=== PATIENT | male | born 1935 | race Caucasian/White ===

== ENCOUNTER 2016-08-08 15:16 | Inpatient (IN) | payer MEDICARE, OTHER ==
[~2016-08-08] VITALS: Ht 172.7 cm; Wt 84.5 kg
--- NOTE | ~2016-08-08 | CON ---
PATIENT'S NAME: CONI JENSEN [facility] AGE: 80 Y [address] ROOM: G6230 [place], [place] [address] LOCATION: GICU ADMIT DATE: 08/08/2016 Consultation DISCHARGE DATE: FAMILY PHYSICIAN: PHYSICIAN, UNKNOWN ATTENDING PHYSICIAN: EMY BECKMAN DATE OF CONSULTATION: 08/09/2016 REFERRING PHYSICIAN: ZAIRE MAHER MD The patient was seen in consultation on 08/09/2016 at 4 p.m. HISTORY OF PRESENT ILLNESS: Mr. Jensen is a very pleasant 80-year-old male patient, who is here with his family. He arrived here by air ambulance from [facility] at that facility. Apparently, the patient had fallen earlier in the day in an attempt to ambulate from his chair to the bathroom. He suffered a fall, he said he hit the back of his head and possibly injured his neck, though he directly has no pain into the back of his head or denied any neck pain presently. In the setting of the patient having this new onset of falling and becoming confused, he was noted to become significantly hypoxic and received a dose of Narcan. The patient then became more awake. Because of the hit to the head, the patient had a CT scan performed and initially it did not show any evidence of a bleed or a stroke. Because of the thought that the patient may have an acute respiratory issue, a CT pulmonary angiogram was done here of the chest due to possibility that he had an aspiration pneumonia and also to rule out possibility of a pulmonary embolus. He indeed had a positive pulmonary emboli that was affecting the right lower lobe of the lung. Furthermore, a CT was done of his cervical, thoracic, and lumbar spine because of his fall, but thankfully no evidence of any fracture was seen of the vertebral bodies. An MRI was finally performed on the after negative CTs and it did show evidence for a stroke into the left side of the cerebellum, some small involvement of a stroke into the left lexie. Though, an MRA followed to look at the vessels of the brain and it was completely negative. My thinking presently is that the patient did have an injury to the posterior blood vessels, may have been associated with the patient's stroke. This may be due to rdpvmt-qa-wbrljs embolization to branch of the basilar artery, more specifically to the superior cerebellar artery and possibly even to branch off the vertebral artery, concerning that the patient did have evidence for stroke into the lexie. Remarkably, the patient is actually doing well. He appears to be in no acute distress. His exam is essentially fairly normal. The only major finding on my physical exam is the patient having some dysmetria in his left hand on gvohmb-zh-ezow. There was no evidence that the patient has been experiencing double vision or vertigo. He denies any problems with chewing or swallowing. He denies any facial numbness or hemibody numbness. He denies having a current headache. Because of the nature of the pulmonary embolism, PATIENT'S NAME: CONI JENSEN [facility] AGE: 80 Y [address] ROOM: [address] [address] LOCATION: [facility] ADMIT DATE: 08/08/2016 Consultation DISCHARGE DATE: FAMILY PHYSICIAN: PHYSICIAN, UNKNOWN ATTENDING PHYSICIAN: EMY BECKMAN the patient was placed on IV heparin with a goal to place him on full anticoagulation, anti-platelet agent, and Plavix was stopped at this time. PAST MEDICAL HISTORY: Essentially, the patient rarely goes to doctors and he says that he is healthy. ALLERGIES: HE HAS NO KNOWN DRUG ALLERGIES. SOCIAL HISTORY: There is a history of probable alcohol abuse. He denies to me heavy alcohol such as liquor consumption. He denies ever having any alcohol withdrawal seizures nor has he ever had alcohol withdrawal agitation or delirium. PAST SURGICAL HISTORY: Appendectomy and hernia repair in his abdomen. FAMILY HISTORY: Noncontributory. REVIEW OF SYSTEMS: This is a pleasant male patient, in no acute distress. Neurologically, he presents after a fall and injury to the back of his head with evidence on MRI of a stroke into the cerebellum and possibly small stroke into the lexie. He is essentially asymptomatic for pontine stroke I believe, however, the cerebellar stroke is probably giving him some dysmetria on xvawia-pn-fzep of his left arm. He has no focal weakness. No sensory complaints. No current headache. He has full range of motion of his head and neck. There are no complaints of vertigo, double vision, facial numbness, or hemibody numbness. The patient was not ambulated by myself, but he was known to have some mild ataxic gait with a tendency to fall to the left. Pulmonary smith, the patient has been started on IV heparin with the evidence for a pulmonary embolism. The rest of the review of systems is within normal limits. PHYSICAL EXAMINATION: GENERAL: This is an 80-year-old patient, who has excellent mentation. His speech is clear. He answers all questions appropriately. His memory is intact with 5/5 object recall at 5 minutes. VITAL SIGNS: Reveal a pulse of 64, respirations 18, blood pressure 144/69, and temperature 98.6. NEUROLOGIC: Cranial nerves II through XII was intact. I did not appreciate any facial droop. He did not have any dysarthric speech. His neck is supple on flexion and extension. Full power was noted in all the extremities with normal bulk and tone. Coordination on ccapgy-ez-zdcw revealing dysmetria in PATIENT'S NAME: CONI JENSEN [facility] AGE: 80 Y [address] ROOM: [address] [address] LOCATION: [facility] ADMIT DATE: 08/08/2016 Consultation DISCHARGE DATE: FAMILY PHYSICIAN: PHYSICIAN, UNKNOWN ATTENDING PHYSICIAN: EMY BECKMAN the left upper extremity, but not in the right upper extremity. Sensory exam was completely intact. He was not ambulated presently. IMPRESSION: Mr. Jensen is an 80-year-old male patient, who had an injury after a fall at home. He also came in with hypoxic respiratory distress and was found to have a pulmonary embolism, which is currently being treated with IV heparin, suggesting that he had a stroke into the cerebellum and some evidence of a positive DWI finding in the lexie. He has absolutely no findings on physical exam of a pontine stroke, so I am not sure how that relates to the finding on MRI. I am sure that he is making a good recovery at this point in time and his only findings on physical exam is a bit of dysmetria on the left side. I want the patient to be on bedrest for 3 days from the time of having this type of stroke. It is important because there is often some swelling that takes place and this type of stroke often lead to obstruction of the fourth ventricle. Hopefully, after 72 hours, we could ambulate the patient. He probably has some mild ataxic gait according to the nurse when he was briefly ambulated, but I am not necessarily concerned that this would be an issue over the next few days. In general, cerebellar stroke should make a good recovery. I cannot prove that the patient had an injury per se to the vertebral artery and had xaopav-im-qhhslr embolization to the superior cerebellar arteries, but the history of a fall with a brief injury to the vertebral artery could have caused some low-flow state and fyqwjt-vg-kywwdh emboli to the superior cerebellar artery. The treatment would normally be aspirin only and I am not against using anticoagulation in the setting of this particular stroke. The nature of the treatment for a pulmonary embolism with anticoagulation far outweighs the risk for intracranial hemorrhage with an anticoagulant. Certainly, I discussed with the patient and family that the risk for bleeding into a stroke is certainly there, though I do not necessarily think it is more than a low likelihood. The risk for bleeding into a stroke probably peaked around one week's time from the time of the stroke. I discussed with him that he should be on strict bedrest up until 72 hours and we will slowly begin to ambulate the patient and see his needs for physical therapy. Currently, he does not have any dysarthric speech and need for speech therapy is extremely limited. We will continue to follow along the patient's status. MD ROD HERNANDEZ/rogel /[id number] d: 08/11/16 0155 t: 08/21/16 1738, CONSULTATION REPORT
--- NOTE | ~2016-08-08 | ENPV ---
Vascular Lower Extremities DVT Study Procedure Demographics Patient Name CONI MCLEAN Date of Study 08/09/2016 Patient Number [id number] Gender Male Date of 1935 Age 80 Visit Number [id number] Height 68 Accession Number [id number] Weight 188 Referring Fawn Pimentel MD Interpreting Dhruv Ramires MD Physician Physician Physician Ordering Physician Fawn Pimentel MD Cloth Winder Test Designer Violet Masseye RUST, T Conclusions Summary No evidence of deep vein thrombosis or superficial thrombophlebitis in the lower extremities bilaterally . Procedure Type of Study: Veins:Lower Extremities DVT Study, Venous Duplex Lower Extremity Bilateral. Indications for Study:Pulmonary embolism. Appropriate Use Criteria:9 Patient Status:Routine. Study Location:Inpatient Portable. Technical Quality:Adequate visualization. Velocities are measured in cm/s ; Diameters are measured in cm Right Lower Extremities DVT Study Measurements Right 2D and Doppler Measurements + + + + +------+------+ + !Location !Visualized!Compressibility!Thrombosis!Signal!Reflux!Reflux ! ! ! ! ! ! ! !(sec) ! + + + + +------+------+ + !GSV Thigh !Yes !Yes !None !Phasic! ! ! + + + + +------+------+ + !Common !Yes !Yes !None !Phasic! ! ! !Femoral ! ! ! ! ! ! ! + + + + +------+------+ + !Prox !Yes !Yes !None !Phasic! ! ! !Femoral ! ! ! ! ! ! ! + + + + +------+------+ + !Mid Femoral!Yes !Yes !None !Phasic! ! ! + + + + +------+------+ + !Dist !Yes !Yes !None !Phasic! ! ! !Femoral ! ! ! ! ! ! ! + + + + +------+------+ + !Popliteal !Yes !Yes !None !Phasic! ! ! + + + + +------+------+ + !Gastroc !Yes !Yes !None ! ! ! ! + + + + +------+------+ + !PTV !Yes !Yes !None ! ! ! ! + + + + +------+------+ + !Peroneal !Yes !Yes !None ! ! ! ! + + + + +------+------+ + Left Lower Extremities DVT Study Measurements Left 2D and Doppler Measurements + + + + +------+------+ + !Location !Visualized!Compressibility!Thrombosis!Signal!Reflux!Reflux ! ! ! ! ! ! ! !(sec) ! + + + + +------+------+ + !GSV Thigh !Yes !Yes !None !Phasic! ! ! + + + + +------+------+ + !Common !Yes !Yes !None !Phasic! ! ! !Femoral ! ! ! ! ! ! ! + + + + +------+------+ + !Prox !Yes !Yes !None !Phasic! ! ! !Femoral ! ! ! ! ! ! ! + + + + +------+------+ + !Mid Femoral!Yes !Yes !None !Phasic! ! ! + + + + +------+------+ + !Dist !Yes !Yes !None !Phasic! ! ! !Femoral ! ! ! ! ! ! ! + + + + +------+------+ + !Popliteal !Yes !Yes !None !Phasic! ! ! + + + + +------+------+ + !Gastroc !Yes !Yes !None ! ! ! ! + + + + +------+------+ + !PTV !Yes !Yes !None ! ! ! ! + + + + +------+------+ + !Peroneal !Yes !Yes !None ! ! ! ! + + + + +------+------+ + Signature dtt: SUPRIYA DELGADO dtkeisha: 08/09/16 1539 Physician Self Edit
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
--- NOTE | ~2016-08-08 | CON ---
PATIENT'S NAME: CARIDAD [facility] AGE: 80 Y [address] ROOM: [place] [address] LOCATION: [facility] ADMIT DATE: 08/08/2016 Consultation DISCHARGE DATE: FAMILY PHYSICIAN: PHYSICIAN, UNKNOWN ATTENDING PHYSICIAN: EMY AUGUSTINE REFERRING PHYSICIAN: ZAIRE MAHER MD Consult for Dr. Augustine, hospitalist. HISTORY OF PRESENT ILLNESS: This is an 80-year-old gentleman, who lives with , was admitted yesterday on 08/08/2016 transferred from [facility] as per history and physical with hypoxia and falling. He has been drinking the night before. However, he has never been intoxicated and he drinks on and off. He went to bathroom and fell and hit his head, left side. CT scan was done and revealed no abnormality. However, MRI showed the followin. Large acute area of ischemic process involving the left side of cerebellum hemisphere and a small area of acute ischemic area involving the left lexie. 2. Mild periventricular small-vessel ischemia. 3. No acute hemorrhage. MEDICAL HISTORY: To start with, it was negative for any fracture and/or abnormality of the cervical spine and thoracic and lumbar spine. CT scan of the lungs showed pulmonary embolism in the right lower artery of the right lung. He has also hiatal hernia with decreased saturation, hypoxia. PHYSICAL EXAMINATION: GENERAL: At the present time, he is alert, oriented. VITAL SIGNS: Blood pressure 126/61, temperature 97.2, pulse 63, respiratory rate 16. He is 5 feet 8 inches tall, weighs 85.3 kg. HEENT: Head normocephalic. NEUROLOGIC: Cranial nerves 2 through 12 are within normal limits, except for the dysequilibrium. He can swallow. His voice is clear and not wet. Tongue and soft palate are moving symmetrical. He is at the present time able to move bilateral upper and lower extremities with a muscle strength of about 4- to 4/5 throughout. Deep tendon reflexes are present and equal throughout. He feels markedly unsteady when standing, kneels mostly to right and posteriorly. MEDICATIONS: He is on the following medications: PATIENT'S NAME: CARIDAD [facility] AGE: 80 Y [address] ROOM: [place] [id number] LOCATION: [facility] ADMIT DATE: 08/08/2016 Consultation DISCHARGE DATE: FAMILY PHYSICIAN: PHYSICIAN, UNKNOWN ATTENDING PHYSICIAN: EMY AUGUSTINE 1. Colace. 2. Protonix. 3. Mucinex. 4. Apresoline. 5. Lipitor. 6. Aspirin. 7. Labetalol. 8. NaCl 0.9%. 9. Ativan. 10. Tylenol. 11. Zofran. 12. Morphine sulfate. 13. Heparin sodium. 14. Hydralazine. 15. Protonix. 16. Thermazene. ASSESSMENT AND PLAN: I feel this gentleman will benefit from intensive PT, OT, and Speech for about 3 weeks, aiming to discharge on modified independence to acute rehab. He is at the present time already initiated on PT, OT, and Speech. I will advise that he should not drive despite any means he is discharged before he comes to me, and he should have his saturation 89 and above. He is at high risk of falling and he needs hands on at all time when he is up. All the above was explained to him. I am ready to take him for intensive rehabilitation. Thank you for this referral. All the above were explained to him. He verbalized understanding and agreement. MD ANNIE BERRY/modl /[id number] d: 08/09/16 2258 t: 08/10/16 0900, CONSULTATION REPORT
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
--- NOTE | ~2016-08-08 | ECHO ---
Transthoracic Echocardiography Report (TTE) Demographics Patient Name CONI MCLEAN Date of Study 08/09/2016 Patient Number [id number] Visit Number [id number] Date of 1935 Room Number G6230 Accession Number [id number] Gender Male Age 80 year(s) Referring Fawn Pimentel MD Wood Floor Refinisher Violet Holbrook RDCS, Physician RVT Physician Interpreting Claudine Pascal MD Strap Cutting Machine Operator Physician Supervising Ordering Physician Fawn Pimentel MD, MD/P Nurse Stress Lead Systems Architect Conclusions Contractility Score Summary Normal Left Ventricular contractility was noted. Summary The estimated left ventricular ejection fraction is 55-60%. Diastolic assessment reveals Grade II pseudonormal diastolic function . The left atrium is severely dilated by LA volume index measurement. Informed consent was obtained, bubble study was done, there is no evidence for a PFO or ASD. The right atrium is moderately dilated. Mild tricuspid regurgitation by color Doppler. There is moderate pulmonary hypertension. The pulmonary pressure (RVSP) is 47.44 mmHg. Procedure Type of Study TTE procedure:2D Echocardiogram. Procedure Date Date: 08/09/2016 Start: 03:04 PM Study Location: Inpatient Portable Technical Quality: Adequate visualization Indications:CVA. Appropriate Use Criteria: 9 Patient Status: Routine Contrast Medium: Bubble Study. HR: 59 bpm BP: 125/61 mmHg M-Mode/2D Measurements LV Diastolic Dimension: 5.38 cm LV Systolic Dimension: 2.74 cm LV Septum Diastolic: 0.81 cm LV PW Diastolic: 0.91 cm Cardiac Output: 3.95 l/min LA Dimension: 3.1 cm LVOT: 1.9 cm LVOT VTI: 23.6 cm RV Base: 3.71 cm LV Stroke volume: 66.88 ml RV Length: 6.35 cm TAPSE: 3 cm TDI-S': 15 cm/s Doppler Measurements AV Peak Velocity: 1.47 m/s MV Peak E-Wave: 0.83 m/s AV Peak Gradient: 8.64 mmHg MV Peak A-Wave: 0.74 m/s AV Mean Gradient: 4 mmHg MV E/A Ratio: 1.13 LVOT Peak Velocity: 1 m/s MV P1/2t: 59 msec AV P1/2t: 603 msec TR Gradient:39.44 mmHg PV Peak Velocity: 0.7 m/s Estimated RAP:8 mmHg PV Peak Gradient: 1.96 mmHg Estimated RVSP: 47 mmHg Estimated PASP: 47.44 mmHg Findings Left Ventricle Diastolic assessment reveals Grade II pseudonormal diastolic function . The left ventricle is normal in size . Right Ventricle Mildly dilated right ventricle. Left Atrium Informed consent was obtained, bubble study was done, there is no evidence for a PFO or ASD. Right Atrium The right atrium is moderately dilated. IVC measures 2.4 cm with inspiratory collapse. Mitral Valve Mild mitral regurgitation by color Doppler. Aortic Valve There is mild aortic regurgitation by color Doppler. Tricuspid Valve Moderate tricuspid regurgitation by color Doppler. There is moderate pulmonary hypertension. The pulmonary pressure (RVSP) is 47.44 mmHg. Pulmonic Valve Normal pulmonic valve structure and function. Pericardial Effusion No evidence of pericardial effusion. Miscellaneous Visualized portions of the aortic root and ascending aorta appear normal in size. Pleural Effusion No evidence of pleural effusion. Contractility Score LV regional wall motion:(0-Non visualized 1-Normal 2-Hypokinesis 3-Akinesis 4-Dyskinesis 5-Aneurysm) Signature dtt: Gwyn Chow (cardio) dtd: 08/09/16 1504 Physician Self Edit
[2016-08-08 16:00] LABS: BASOPHIL % 0.2 %; HEMATOCRIT 41.1 % (33.0-50.0); HEMOGLOBIN 13.7 g/dL (11.0-16.0); IMMATURE GRANULOCYTE % 0.5 %; LYMPHOCYTE # 0.5 K/uL (0.8-4.0); LYMPHOCYTE % 8.3 %; MCH 32.5 pg (27.0-34.0); MCHC 33.3 gm/dL (32.0-36.5); MCV 97.6 fl (83.0-98.0); MONOCYTE # 0.2 K/uL (0.0-1.0); MONOCYTE % 3.7 %; MPV 9.8 fl (9.4-12.4); NEUTROPHIL # (ANC) 5.5 K/uL (1.4-9.0); NEUTROPHIL % 87.3 %; NRBC % 0 /100WBC (0-0.00); PLATELET COUNT 174 K/uL (150-450); RBC 4.21 M/uL (3.50-5.50); RDW-CV 15.9 % (11.9-14.6); WBC 6.3 K/uL (4.0-11.0)
[2016-08-08 16:07] LABS: INR - (THERAPEUTIC) 0.97 (0.92-1.07); PROTIME 10.2 SECONDS (9.8-11.4); PTT 27 SECONDS (25-32)
[2016-08-08 18:34] LABS: ALBUMIN 3.7 gm/dL (3.5-5.0); ANION GAP 14.4 (10.0-19.0); CREATININE 1.2 mg/dL (0.6-1.3); POTASSIUM 4.4 mMol/L (3.7-5.1); TOTAL BILIRUBIN 0.5 mg/dL (0.0-1.5); TOTAL PROTEIN 7.6 g/dL (6.0-8.4)
[2016-08-08 21:16] LABS: BILIRUBIN URINE NEGATIVE (NEGATIVE); BLOOD URINE NEGATIVE /UL (NEGATIVE); GLUCOSE URINE NEGATIVE (NEGATIVE); KETONE URINE 5 mg/dL (NEGATIVE); LEUKOCYTES URINE NEGATIVE /UL (NEGATIVE); NITRITE URINE NEGATIVE (NEGATIVE); PROTEIN URINE 15 mg/dL (NEGATIVE); UROBILINOGEN URINE NORMAL (NORMAL)
[2016-08-08 21:18] LABS: COLOR URINE YELLOW (YELLOW); TURBIDITY URINE CLEAR (CLEAR)
[2016-08-08 21:31] LABS: BACTERIA URINE NEGATIVE (NEGATIVE); EPITHELIAL URINE 0-2 #/HPF (NEGATIVE); RBC URINE 0-2 #/HPF (NEGATIVE); WBC URINE 0-2 #/HPF (NEGATIVE)
[2016-08-08 21:32] LABS: HYALINE CAST URINE RARE #/LPF (NEGATIVE)
[2016-08-08 21:47] LABS: BARBITURATE NEGATIVE (NEGATIVE); OPIATES POSITIVE (NEGATIVE)
[2016-08-08 21:50] LABS: AMPHETAMINE NEGATIVE (NEGATIVE); COCAINE NEGATIVE (NEGATIVE)
[2016-08-09 07:00] LABS: HEMATOCRIT 36.9 % (33.0-50.0); HEMOGLOBIN 12.1 g/dL (11.0-16.0); MCH 32.1 pg (27.0-34.0); MCHC 32.8 gm/dL (32.0-36.5); MCV 97.9 fl (83.0-98.0); MPV 9.5 fl (9.4-12.4); RBC 3.77 M/uL (3.50-5.50); RDW-CV 15.9 % (11.9-14.6); WBC 6.1 K/uL (4.0-11.0)
[2016-08-09 07:10] LABS: INR - (THERAPEUTIC) 1.03 (0.92-1.07); PROTIME 10.8 SECONDS (9.8-11.4)
[2016-08-09 07:19] LABS: ANION GAP 12.4 (10.0-19.0); CALCIUM 8.2 mg/dL (8.5-10.5); CREATININE 1.2 mg/dL (0.6-1.3); POTASSIUM 4.4 mMol/L (3.7-5.1)
[2016-08-09] MEDS ORDERED: COLACE100 MG PO (12:55)
[2016-08-09] MEDS ORDERED: PROBIOTIC1 EAC1 PO (12:55)
[2016-08-09] MEDS ORDERED: KEFLEX500 MG PO (12:56)
[2016-08-09] MEDS ORDERED: FEOSOL325 MG PO (12:56)
[2016-08-09] MEDS ORDERED: NORCO 5-325 TA1 EACH PO (12:56)
[2016-08-10 11:17] LABS: BASOPHIL % 0.3 %; EOSINOPHIL # 0.1 K/uL (0.0-0.5); EOSINOPHIL % 1.7 %; HEMATOCRIT 38.7 % (33.0-50.0); HEMOGLOBIN 12.6 g/dL (11.0-16.0); IMMATURE GRANULOCYTE # 0.1 K/uL (0.0-0.3); IMMATURE GRANULOCYTE % 0.9 %; LYMPHOCYTE # 1.4 K/uL (0.8-4.0); LYMPHOCYTE % 24.5 %; MCH 32.5 pg (27.0-34.0); MCHC 32.6 gm/dL (32.0-36.5); MCV 99.7 fl (83.0-98.0); MONOCYTE # 0.5 K/uL (0.0-1.0); MONOCYTE % 8.7 %; MPV 9.7 fl (9.4-12.4); NEUTROPHIL # (ANC) 3.7 K/uL (1.4-9.0); NEUTROPHIL % 63.9 %; NRBC % 0.3 /100WBC (0-0.00); PLATELET COUNT 173 K/uL (150-450); RBC 3.88 M/uL (3.50-5.50); RDW-CV 15.9 % (11.9-14.6); WBC 5.7 K/uL (4.0-11.0)
[2016-08-11 05:14] LABS: BASOPHIL % 0.6 %; EOSINOPHIL # 0.3 K/uL (0.0-0.5); EOSINOPHIL % 5.3 %; HEMATOCRIT 34.1 % (33.0-50.0); HEMOGLOBIN 11.5 g/dL (11.0-16.0); IMMATURE GRANULOCYTE % 0.6 %; LYMPHOCYTE # 1.4 K/uL (0.8-4.0); LYMPHOCYTE % 30.1 %; MCH 33.1 pg (27.0-34.0); MCHC 33.7 gm/dL (32.0-36.5); MCV 98.3 fl (83.0-98.0); MONOCYTE # 0.5 K/uL (0.0-1.0); MPV 9.8 fl (9.4-12.4); NEUTROPHIL # (ANC) 2.5 K/uL (1.4-9.0); NEUTROPHIL % 53.4 %; NRBC % 0 /100WBC (0-0.00); PLATELET COUNT 154 K/uL (150-450); RBC 3.47 M/uL (3.50-5.50); RDW-CV 15.9 % (11.9-14.6); WBC 4.7 K/uL (4.0-11.0)
[2016-08-11 05:30] LABS: ALBUMIN 2.8 gm/dL (3.5-5.0); ALK PHOS 56 IU/L (33-138); ALT 15 IU/L (12-78); ANION GAP 8.1 (10.0-19.0); AST 21 IU/L (10-40); BLOOD UREA NITROGEN 7 mg/dL (6-24); CALCIUM 7.9 mg/dL (8.5-10.5); CHLORIDE 112 mMol/L (96-110); CO2 25 mMol/L (22-32); CREATININE 1.1 mg/dL (0.6-1.3); ESTIMATED GFR (MDRD EQUATION) > 60; POTASSIUM 4.1 mMol/L (3.7-5.1); SODIUM 141 mMol/L (135-145); TOTAL BILIRUBIN 0.5 mg/dL (0.0-1.5)
[2016-08-12 05:54] LABS: BASOPHIL % 0.6 %; EOSINOPHIL # 0.2 K/uL (0.0-0.5); EOSINOPHIL % 4.4 %; HEMATOCRIT 35.5 % (33.0-50.0); HEMOGLOBIN 12.1 g/dL (11.0-16.0); IMMATURE GRANULOCYTE % 0.6 %; LYMPHOCYTE # 1.6 K/uL (0.8-4.0); LYMPHOCYTE % 30.5 %; MCH 33.6 pg (27.0-34.0); MCHC 34.1 gm/dL (32.0-36.5); MCV 98.6 fl (83.0-98.0); MONOCYTE # 0.4 K/uL (0.0-1.0); MPV 9.6 fl (9.4-12.4); NEUTROPHIL % 55.9 %; NRBC % 0 /100WBC (0-0.00); PLATELET COUNT 162 K/uL (150-450); RDW-CV 15.6 % (11.9-14.6); WBC 5.3 K/uL (4.0-11.0)
[2016-08-12 06:08] LABS: ALBUMIN 2.9 gm/dL (3.5-5.0); ANION GAP 11.9 (10.0-19.0); BLOOD UREA NITROGEN 9 mg/dL (6-24); CALCIUM 8.1 mg/dL (8.5-10.5); CHLORIDE 110 mMol/L (96-110); CO2 24 mMol/L (22-32); CREATININE 1.1 mg/dL (0.6-1.3); ESTIMATED GFR (MDRD EQUATION) > 60; PHOSPHORUS 2.7 mg/dL (2.5-4.9); POTASSIUM 3.9 mMol/L (3.7-5.1); SODIUM 142 mMol/L (135-145)
[2016-08-13 06:16] LABS: INR - (THERAPEUTIC) 1.46 (0.92-1.07); PROTIME 15.4 SECONDS (9.8-11.4)
[2016-08-13 14:51] LABS: BASOPHIL % 0.3 %; EOSINOPHIL # 0.2 K/uL (0.0-0.5); EOSINOPHIL % 2.4 %; HEMATOCRIT 36.8 % (33.0-50.0); HEMOGLOBIN 12.6 g/dL (11.0-16.0); IMMATURE GRANULOCYTE % 0.4 %; LYMPHOCYTE # 1.7 K/uL (0.8-4.0); LYMPHOCYTE % 21.7 %; MCH 33.2 pg (27.0-34.0); MCHC 34.2 gm/dL (32.0-36.5); MCV 96.8 fl (83.0-98.0); MONOCYTE # 0.7 K/uL (0.0-1.0); MONOCYTE % 9.7 %; MPV 9.7 fl (9.4-12.4); NEUTROPHIL % 65.5 %; NRBC % 0 /100WBC (0-0.00); PLATELET COUNT 176 K/uL (150-450); RDW-CV 15.7 % (11.9-14.6); WBC 7.7 K/uL (4.0-11.0)
[2016-08-14 06:15] LABS: INR - (THERAPEUTIC) 2.12 (0.92-1.07); PROTIME 22.4 SECONDS (9.8-11.4)
[2016-08-15 06:28] LABS: INR - (THERAPEUTIC) 2.9 (0.92-1.07); PROTIME 30.8 SECONDS (9.8-11.4)
== END 2016-08-15 10:52 | disposition swing bed (61) | DRG 175 ==
LOC: GMED 15:16 → GICU 17:37 → GNTU 18:00 → GICU 18:04
PROVIDERS: Emergency Medicine; Internal Medicine; Student in an Organized Health Care Education/Training Program; ADMIT Internal Medicine
PROC: B246ZZZ Ultrasonography of Right and Left Heart (ICD-10-PCS; principal; 2016-08-09)
PROC: F00ZJWZ Instrumental Swallowing and Oral Function Assessment using Swallowing Equipment (ICD-10-PCS; principal; 2016-08-09)
DX: I26.99 Other pulmonary embolism without acute cor pulmonale (principal); I63.532 Cerebral infarction due to unspecified occlusion or stenosis of left posterior cerebral artery; J96.01 Acute respiratory failure with hypoxia; G93.40 Encephalopathy, unspecified; T31.0 Burns involving less than 10% of body surface; F10.20 Alcohol dependence, uncomplicated; K44.9 Diaphragmatic hernia without obstruction or gangrene; M13.122 Monoarthritis, not elsewhere classified, left elbow; F11.90 Opioid use, unspecified, uncomplicated; M11.222 Other chondrocalcinosis, left elbow; T20.35XD Burn of third degree of scalp [any part], subsequent encounter; B35.1 Tinea unguium; Z91.81 History of falling
CPT/HCPCS: A9577; C9113; G0480; J1644; J1940; J2270; J2405; J2920; J7030; Q9967

== ENCOUNTER → 2016-08-08 | Outpatient (CLI) | payer MEDICARE, OTHER ==
[~2016-08-08] MED LIST: COLACE100 MG PO; COUMADIN 4MG **4 MG PO; FEOSOL325 MG PO; KEFLEX500 MG PO; LIPITOR80 MG PO; MAG-OX-400(241400 MG PO; NORCO 5-325 TA1 EACH PO; NYSTOP POWD60 GM/BOT TOP; PROBIOTIC1 EAC1 PO; SSD 1% TOP; THERA-VITE W/ B1 TAB PO
== END | disposition disaster alternative care site (69) ==
LOC: GAIR 14:39
DX: R06.00 Dyspnea, unspecified (principal); R05 Cough; R44.3 Hallucinations, unspecified; R11.10 Vomiting, unspecified; Z79.891 Long term (current) use of opiate analgesic; Z79.899 Other long term (current) drug therapy
CPT/HCPCS: A0422; A0431; A0436; A9577; J2405

== ENCOUNTER 2016-09-06 09:59 | Inpatient (IN) | payer MEDICARE, OTHER ==
[~2016-09-06] VITALS: Ht 182.9 cm; Wt 84.3 kg
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
[~2016-09-06 09:59] MED LIST changes: -COUMADIN 4MG **4 MG PO; -LIPITOR80 MG PO; -MAG-OX-400(241400 MG PO; -NYSTOP POWD60 GM/BOT TOP; -SSD 1% TOP; -THERA-VITE W/ B1 TAB PO
[2016-09-06 22:43] LABS: BILIRUBIN URINE NEGATIVE (NEGATIVE); BLOOD URINE NEGATIVE /UL (NEGATIVE); COLOR URINE YELLOW (YELLOW); GLUCOSE URINE NEGATIVE (NEGATIVE); KETONE URINE NEGATIVE (NEGATIVE); LEUKOCYTES URINE NEGATIVE /UL (NEGATIVE); NITRITE URINE NEGATIVE (NEGATIVE); PROTEIN URINE NEGATIVE (NEGATIVE); TURBIDITY URINE CLEAR (CLEAR); UROBILINOGEN URINE NORMAL (NORMAL)
[2016-09-07 05:32] LABS: BASOPHIL % 0.5 %; EOSINOPHIL # 0.3 K/uL (0.0-0.5); EOSINOPHIL % 5.2 %; HEMATOCRIT 38.4 % (33.0-50.0); HEMOGLOBIN 12.9 g/dL (11.0-16.0); IMMATURE GRANULOCYTE % 0.5 %; LYMPHOCYTE # 1.8 K/uL (0.8-4.0); LYMPHOCYTE % 30.6 %; MCH 33.2 pg (27.0-34.0); MCHC 33.6 gm/dL (32.0-36.5); MCV 98.7 fl (83.0-98.0); MONOCYTE # 0.5 K/uL (0.0-1.0); MPV 9.1 fl (9.4-12.4); NEUTROPHIL # (ANC) 3.1 K/uL (1.4-9.0); NEUTROPHIL % 54.2 %; NRBC % 0 /100WBC (0-0.00); PLATELET COUNT 162 K/uL (150-450); RBC 3.89 M/uL (3.50-5.50); RDW-CV 14.6 % (11.9-14.6); WBC 5.8 K/uL (4.0-11.0)
[2016-09-07 05:43] LABS: INR - (THERAPEUTIC) 2.75 (0.92-1.07); PROTIME 29.2 SECONDS (9.8-11.4)
[2016-09-07 05:53] LABS: ALBUMIN 3.1 gm/dL (3.5-5.0); ANION GAP 10.6 (10.0-19.0); CALCIUM 8.9 mg/dL (8.5-10.5); CREATININE 1.1 mg/dL (0.6-1.3); POTASSIUM 4.6 mMol/L (3.7-5.1); TOTAL BILIRUBIN 0.5 mg/dL (0.0-1.5); TOTAL PROTEIN 6.8 g/dL (6.0-8.4)
[2016-09-08 06:36] LABS: INR - (THERAPEUTIC) 2.83 (0.92-1.07)
[2016-09-09 06:12] LABS: INR - (THERAPEUTIC) 2.65 (0.92-1.07); PROTIME 28.1 SECONDS (9.8-11.4)
[2016-09-10 06:09] LABS: INR - (THERAPEUTIC) 2.76 (0.92-1.07); PROTIME 29.3 SECONDS (9.8-11.4)
[2016-09-11 06:13] LABS: INR - (THERAPEUTIC) 3.02 (0.92-1.07); PROTIME 32.1 SECONDS (9.8-11.4)
[2016-09-12 08:19] LABS: INR - (THERAPEUTIC) 2.59 (0.92-1.07); PROTIME 27.5 SECONDS (9.8-11.4)
[2016-09-13 05:44] LABS: INR - (THERAPEUTIC) 2.81 (0.92-1.07); PROTIME 29.8 SECONDS (9.8-11.4)
[2016-09-13] MEDS ORDERED: LIPITOR80 MG PO (09:37)
[2016-09-13] MEDS ORDERED: MAG-OX-400(241400 MG PO (09:39)
[2016-09-13] MEDS ORDERED: THERA-VITE W/ B1 TAB PO (09:40)
[2016-09-13] MEDS ORDERED: NYSTOP POWD60 GM/BOT TOP (09:41)
[2016-09-13] MEDS ORDERED: SSD 1% TOP (09:42)
[2016-09-13] MEDS ORDERED: COUMADIN 4MG **4 MG PO (09:46)
== END 2016-09-13 11:00 | disposition disaster alternative care site (69) | DRG 56 ==
LOC: G3N 11:11 → GIRP 11:11
PROVIDERS: ADMIT Physical Medicine & Rehabilitation
PROC: F07Z9ZZ Gait Training/Functional Ambulation Treatment (ICD-10-PCS; principal; 2016-09-06)
PROC: F07M6ZZ Therapeutic Exercise Treatment of Musculoskeletal System - Whole Body (ICD-10-PCS; principal; 2016-09-06)
PROC: F06Z6ZZ Communicative/Cognitive Integration Skills Treatment (ICD-10-PCS; principal; 2016-09-06)
PROC: F08Z4ZZ Home Management Treatment (ICD-10-PCS; principal; 2016-09-06)
DX: I69.398 Other sequelae of cerebral infarction (principal); G93.49 Other encephalopathy; R26.9 Unspecified abnormalities of gait and mobility; D64.9 Anemia, unspecified; Z86.711 Personal history of pulmonary embolism; E78.5 Hyperlipidemia, unspecified; Z79.01 Long term (current) use of anticoagulants; T20.25 Burn of second degree of scalp [any part]; T23.201D Burn of second degree of right hand, unspecified site, subsequent encounter; X08.8XXD Exposure to other specified smoke, fire and flames, subsequent encounter; Z87.898 Personal history of other specified conditions